=== PATIENT | female | born 1955 | race American Indian/Alaskan Native ===

== ENCOUNTER 2017-03-27 19:19 | Emergency (ER) | payer MEDICAID ==
[2017-03-27] MEDS ORDERED: ATROPINE 0.1% (CARDIAC) ONE (19:20)
[2017-03-27] MEDS ORDERED: CALCIUM CHLORIDE IV ONE (19:20)
[2017-03-27] MEDS ORDERED: MAGNESIUM SULFATE ONE (19:20)
[2017-03-27] MEDS ORDERED: SODIUM BICARBONATE IV ONE (19:20)
[2017-03-27] MEDS ORDERED: ADRENALIN ONE (19:20)
[2017-03-27] MEDS ORDERED: NACL 0.9% 1000 ML 1,000 ML ONE (19:30)
--- NOTE | 2017-03-27 20:07 | Emergency Department Report ---
ED CPR HPI - General Stated Complaint: CARDIAC ARREST Time Seen by Provider: 03/27/17 19:58 Source: EMS Mode of arrival: Stretcher Limitations: Altered Mental Status - History of Present Illness MD Complaint: found unresponsive, stopped breathing, collapsed during rest Onset/Timin (prior arrival) Place: home Bystander CPR Performed: No AED Applied by Bystander/Debrander: No Shock Advised: No Initial Findings in the Field: unresponsive, no respirations ROSC in the Field: No Associated Injuries: No Associated Symptoms: denies: chest pain, abdominal pain, back pain, shortness of breath, headache, dizziness/weakness, sweating, palpitations, AICD discharge( s) Treatments Prior to Arrival: intubation, BMV, glucose - Related Data Home Medications Medication Instructions Recorded Confirmed Last Taken ALPRAZolam [Xanax TAB] 0.5 mg PO DAILY 04/18/16 04/18/16 Unknown Amlodipine Besylate [Norvasc] 10 mg PO DAILY 04/18/16 04/18/16 Unknown Carvedilol [Coreg] 12.5 mg PO BID 04/18/16 04/18/16 Unknown Telmisartan/Hydrochlorothiazid 1 each PO ONCE 04/18/16 04/18/16 Unknown [Telmisartan-Hctz 80-12.5 mg Tb] Zolpidem Tartrate [Edluar SUBL] 5 mg SL QHS 04/18/16 04/18/16 Unknown risperiDONE [RisperDAL] 2 mg PO QDAY 04/18/16 04/18/16 Unknown Previous Rx's Medication Instructions Recorded Last Taken Type Famotidine [Pepcid] 20 mg PO BID #60 tablet 04/19/16 Unknown Rx Fluticasone/Salmeterol [Advair 1 puff IH BID 30 Days 04/19/16 Unknown Rx Diskus 250-50 mcg] Furosemide [Lasix TAB] 20 mg PO QDAY #30 tablet 04/19/16 Unknown Rx HYDROcodone/APAP 7.5-325 [[place] 1 each PO Q12HR PRN #10 tablet 04/19/16 Unknown Rx 7.5-325 mg TAB] Hydralazine HCl [Apresoline TAB] 50 mg PO Q8HR #90 tab 04/19/16 Unknown Rx predniSONE [Deltasone] 20 mg PO QDAY #30 tablet 04/19/16 Unknown Rx Chlorhexidine Mouthwash [Peridex] 15 ml MM BID #1 bottle 08/05/16 Unknown Rx Skin Emollient [Aquaphor] 0 gm TP QDAY PRN #1 tube 08/05/16 Unknown Rx Allergies Allergy/AdvReac Type Severity Reaction Status Date / Time No Known Allergies Allergy Verified 02/27/15 11:41 ED Review of Systems ROS: Stated complaint: CARDIAC ARREST Other details as noted in HPI Comment: Unobtainable due to pts medical conditions ED Past Medical Hx - Past Medical History Hx Hypertension: Yes Hx CVA: No Hx Heart Attack/AMI: No Hx Congestive Heart Failure: No Hx Diabetes: No Hx Deep Vein Thrombosis: No Hx Pulmonary Embolism: No Hx GERD: No Hx Liver Disease: No Hx Renal Disease: No Hx Sickle Cell Disease: No Hx Arthritis: Yes Hx Headaches / Migraines: No Hx Seizures: No Hx Kidney Stones: No Hx Psychiatric Treatment: Yes (DEPRESSION) Hx Asthma: Yes Hx COPD: Yes Hx Tuberculosis: No Hx Dementia: No Hx HIV: No - Surgical History Hx Coronary Stent: No Hx Open Heart Surgery: No Hx Pacemaker: No Hx Internal Defibrillator: No Hx Cholecystectomy: No Hx Appendectomy: No Hx Breast Surgery: No Additional Surgical History: Tracheostomy in the past. 2 cyst removed - Social History Smoking Status: Former Smoker - Medications Home Medications: Home Medications Medication Instructions Recorded Confirmed Last Taken Type ALPRAZolam [Xanax TAB] 0.5 mg PO DAILY 04/18/16 04/18/16 Unknown History Amlodipine Besylate [Norvasc] 10 mg PO DAILY 04/18/16 04/18/16 Unknown History Carvedilol [Coreg] 12.5 mg PO BID 04/18/16 04/18/16 Unknown History Telmisartan/Hydrochlorothiazid 1 each PO ONCE 04/18/16 04/18/16 Unknown History [Telmisartan-Hctz 80-12.5 mg Tb] Zolpidem Tartrate [Edluar SUBL] 5 mg SL QHS 04/18/16 04/18/16 Unknown History risperiDONE [RisperDAL] 2 mg PO QDAY 04/18/16 04/18/16 Unknown History Famotidine [Pepcid] 20 mg PO BID #60 tablet 04/19/16 Unknown Rx Fluticasone/Salmeterol [Advair 1 puff IH BID 30 Days 04/19/16 Unknown Rx Diskus 250-50 mcg] Furosemide [Lasix TAB] 20 mg PO QDAY #30 tablet 04/19/16 Unknown Rx HYDROcodone/APAP 7.5-325 [[place] 1 each PO Q12HR PRN #10 tablet 04/19/16 Unknown Rx 7.5-325 mg TAB] Hydralazine HCl [Apresoline TAB] 50 mg PO Q8HR #90 tab 04/19/16 Unknown Rx predniSONE [Deltasone] 20 mg PO QDAY #30 tablet 04/19/16 Unknown Rx Chlorhexidine Mouthwash [Peridex] 15 ml MM BID #1 bottle 08/05/16 Unknown Rx Skin Emollient [Aquaphor] 0 gm TP QDAY PRN #1 tube 08/05/16 Unknown Rx ED Physical Exam - General General appearance: obtunded - Head Head exam: Present: atraumatic - Eye Eye exam: Present: normal appearance - ENT ENT exam: Present: normal exam, normal orophraynx - Extremities Exam Extremities exam: Present: normal inspection - Back Exam Back exam: Present: normal inspection - Central Line Placement Right Femoral Consent Obtained: emergent situation Time Out Performed: Yes Patient Placed on Monitor/Pulse Ox: Yes Central Line Prep: Povidone-Iodine 1% Ultrasound Used for Placement: No Central Line Lumen Inserted: triple Dressing Applied: Tegaderm Patient Tolerated Procedure: well Complications: none ED Medical Decision Making - Medical Decision Making patient brought in cardiac arrest / asystole. approximately 10 min prior ems arrival, no pulses during the code by ems or here, multiple rounds and proper ACLS was followed, patient at 732pm. Central line was placed for IV access. Critical care attestation.: If time is entered above; I have spent that time in minutes in the direct care of this critically ill patient, excluding procedure time. ED Disposition Clinical Impression: Cardiac arrest Disposition: DC-20 Is pt being admited?: No Does the pt Need Aspirin: No Condition: Stable Time of Disposition: 20:08
== END 2017-03-27 23:30 ==
LOC: ED 19:19
DX: I46.9 Cardiac arrest, cause unspecified (principal); I10 Essential (primary) hypertension; M19.90 Unspecified osteoarthritis, unspecified site; F32.9 Major depressive disorder, single episode, unspecified; J45.909 Unspecified asthma, uncomplicated; Z87.891 Personal history of nicotine dependence
CPT/HCPCS: 36556; 82962; 99285; J0171; J0461; J3475; J7030